=== PATIENT | female | born 1990 | race African-American/Black ===

== ENCOUNTER 2018-03-19 08:06 | Emergency (ER) | payer OTHER ==
[~2018-03-19] VITALS: Ht 170.2 cm; Wt 61.2 kg
[2018-03-19 08:25] VITALS: BP 114/68
--- NOTE | 2018-03-19 08:53 | Emergency Room Report ---
History of Present Illness General Chief Complaint: Sore Throat Source: Patient Present Illness HPI Patient presents with complaints of sore throat ongoing for the past 3-4 days Patient has subjective fevers off-and-on Denies any posterior neck pain denies any chest pain or shortness of breath Pain is 10 out of 10 worse with swallowing Denies any other trauma denies any vomiting or diarrhea Allergies: Coded Allergies: No Known Allergies (Unverified , 03/19/18) Patient History Past Medical History: see triage record Pertinent Family History: none Last Menstrual Period: 03/05 Now: No Reviewed Nursing Documentation: PMH: Agreed; PSxH: Agreed Nursing Documentation-PMH Past Medical History: No Stated History Review of Systems All Other Systems: negative except mentioned in HPI Physical Exam Vital Signs Date Time Temp Pulse Resp B/P (MAP) Pulse Ox O2 Delivery O2 Flow Rate FiO2 03/19/18 08:15 100.2 120 20 114/68 97 Room Air 100.2 Sp02 EP Interpretation: reviewed, normal General Appearance: well appearing, no apparent distress Head: normocephalic, atraumatic Eyes: bilateral eye PERRL, bilateral eye EOMI ENT: no angioedema, normal voice, uvula midline, pharyngeal erythema, tonsillar exudate - Significant pustules on the right side, uvula however midline, no other posterior cervical lymphadenopathy Neck: supple Respiratory: lungs clear Cardiovascular #1: regular rate, rhythm, no edema Gastrointestinal: non tender Musculoskeletal: normal inspection Neurologic: alert, oriented x3, responsive Skin: normal color, no rash Lymphatic: no adenopathy Medical Decision Making Last Vital Signs Date Time Temp Pulse Resp B/P (MAP) Pulse Ox O2 Delivery O2 Flow Rate FiO2 03/19/18 08:25 100.2 120 20 114/68 97 Room Air 100.2 Referrals: NOT CHOSEN IPA/,REFERRING (PCP) Daysi Capps DO Mar 19, 2018 08:53
[2018-03-19] MEDS ORDERED: Sodium Chloride 500ML 500 ML IV ONE (09:00)
[2018-03-19] MEDS ORDERED: Dexamethasone 4mg/ml vial IVP ONE (09:00)
[2018-03-19] MEDS ORDERED: Bicillin LA 2.4MMU/4ML SYR IM ONE (09:00)
[2018-03-19] MEDS ORDERED: Ketorolac 30mg Inj IV ONE (09:00)
[2018-03-19] MEDS ORDERED: PREDNISONE20 MG ORAL (09:41)
[2018-03-19] MEDS ORDERED: ACETAMINOPHEN-1 EAC1 ORAL (09:41)
[2018-03-19] MEDS ORDERED: AMOXICILLIN500 MG ORAL (09:41)
[2018-03-19] MEDS ORDERED: IBUPROFEN600 MG ORAL (09:41)
[2018-03-19 09:55] VITALS: BP 109/73
== END 2018-03-19 09:55 | disposition home or self-care (01) ==
LOC: EMR 08:51
DX: J02.9 Acute pharyngitis, unspecified (principal)
CPT/HCPCS: 96372; 96374; 96375; 99284; J1100; J1885; J7040